=== PATIENT | female | born 1940 | race Caucasian/White ===

== ENCOUNTER → 2018-01-20 | Outpatient (CLI) | payer MEDICARE, BC ==
[~2018-01-20] MED LIST: ALPR.5 PO; AMLO5 PO; ATOR40TA PO; Aspir 8181 MG; CARV6.25 PO; CHOL10002; Calcium Citrat250 MG; Coq-10100 MG PO; FURO80; HYDR1TAB94; K-TAB ER20 MEQ; LISI5 PO; MAGOXI400; METO50ER; OMEP20ER; PRAV20; ROPI2; TORSE20 PO; Tessalon200 MG; WARF2; WARF4 PO
[2018-01-20 15:55] LABS: Protein, Urine Random 10.1 mg/dL (0.0-11.9)
== END ==
LOC: LAB 14:47 → LAB SHORT 14:47
PROVIDERS: Internal Medicine
DX: N18.4 Chronic kidney disease, stage 4 (severe) (principal)
CPT/HCPCS: 82570; 84156

== ENCOUNTER 2018-02-01 12:51 | Day surgery (SDC) | payer MEDICARE, BC ==
[~2018-02-01] VITALS: Ht 157.5 cm; Wt 94.1 kg
[2018-02-01] MEDS ORDERED: FISH OIL 1,0001 EAC2 (13:35)
[2018-02-01] MEDS ORDERED: SPIR25 (13:36)
[2018-02-01] MEDS ORDERED: GABA100 (13:36)
== END 2018-02-01 15:01 | disposition home or self-care (01) ==
LOC: ORSCSDS 12:51
PROVIDERS: Internal Medicine Gastroenterology
PROC: 0D758ZZ Dilation of Esophagus, Via Natural or Artificial Opening Endoscopic (ICD-10-PCS; principal; 2018-02-01 14:30)
DX: R13.10 Dysphagia, unspecified (principal); R19.7 Diarrhea, unspecified; K44.9 Diaphragmatic hernia without obstruction or gangrene; I10 Essential (primary) hypertension; I50.9 Heart failure, unspecified; K21.9 Gastro-esophageal reflux disease without esophagitis; D50.9 Iron deficiency anemia, unspecified; E78.5 Hyperlipidemia, unspecified; I48.91 Unspecified atrial fibrillation; G47.33 Obstructive sleep apnea (adult) (pediatric); E66.9 Obesity, unspecified; Z87.891 Personal history of nicotine dependence; Z68.37 Body mass index [BMI] 37.0-37.9, adult; Z79.82 Long term (current) use of aspirin; Z79.01 Long term (current) use of anticoagulants; Z79.899 Other long term (current) drug therapy
CPT/HCPCS: J2250; J7120

== ENCOUNTER 2018-10-14 10:33 | Emergency (ER) | payer MEDICARE, BC ==
[~2018-10-14] VITALS: Ht 157.5 cm; Wt 89.4 kg
[~2018-10-14 10:33] MED LIST changes: +FISH OIL 1,0001 EAC2; +GABA100; +SPIR25
[2018-10-14] MEDS ORDERED: WARF2 PO (10:41)
[2018-10-14] MEDS ORDERED: Norco 5-325 Ta1 EACH PO (11:06)
== END 2018-10-14 13:03 | disposition home or self-care (01) ==
LOC: ER 10:33
DX: M70.61 Trochanteric bursitis, right hip (principal); Z88.0 Allergy status to penicillin; Z79.01 Long term (current) use of anticoagulants; Z79.899 Other long term (current) drug therapy; Z79.82 Long term (current) use of aspirin; I10 Essential (primary) hypertension; E78.5 Hyperlipidemia, unspecified; K21.9 Gastro-esophageal reflux disease without esophagitis; Z87.891 Personal history of nicotine dependence
CPT/HCPCS: 96372; 99283-25; J3010

== ENCOUNTER → 2022-07-29 | Outpatient (CLI) | payer OTHER ==
[~2022-07-29] MED LIST changes: +Norco 5-325 Ta1 EACH PO; +WARF2 PO
[2022-07-29 12:33] LABS: International Normalized Ratio 1.92; Prothrombin Time Results 19.3 Sec (9.7-11.5)
[2022-07-29 15:48] LABS: Albumin, Blood 3.3 g/dL (3.4-5.0); Anion Gap 3 mmol/L (6-16); Blood Urea Nitrogen 28 mg/dL (8-24); Bun/Creatinine Ratio 17.1 (12.0-20.0); CO2, Blood 30 mmol/L (21-32); Calcium, Blood 9.6 mg/dL (8.5-10.1); Chloride, Blood 100 mmol/L (98-108); Creatinine, Blood 1.64 mg/dL (0.40-1.00); Glomerular Filtration Rate 31 (60-); Glucose, Blood 97 mg/dL (70-99); Phosphorus, Blood 3.6 mg/dL (2.5-4.9); Potassium, Blood 4.3 mmol/L (3.5-5.5); Sodium, Blood 133 mmol/L (136-145)
== END | disposition home or self-care (01) ==
LOC: LAB 11:33 → LAB SHORT 11:33
PROVIDERS: Family Medicine; Internal Medicine Nephrology
DX: N18.32 Chronic kidney disease, stage 3b (principal); I48.91 Unspecified atrial fibrillation
CPT/HCPCS: 36415; 80069; 85610

== ENCOUNTER 2024-04-14 16:53 | Inpatient (IN) | payer OTHER ==
[~2024-04-14] VITALS: Ht 157.5 cm; Wt 78.0 kg
[~2024-04-14 16:53] MED LIST changes: -GABA300 PO; -MAGOXI400 PO; -POTA10T PO; -ROPINIROLE HCL4 M2 PO; -SOAANZ20 M3 PO
[2024-04-14 18:14] LABS: BASOPHILS ABSOLUTE AUTO 0.07 K/mm3 (0.00-0.23); BASOPHILS PERCENT AUTO 1 % (0-2); EOSINOPHILS ABSOLUTE AUTO 0.03 K/mm3 (0.00-0.68); EOSINOPHILS PERCENT AUTO 0 % (0-6); Hematocrit 30.3 % (33.0-51.0); Hemoglobin 9.6 g/dL (11.5-16.0); IMMATURE GRAN ABSOLUTE AUTO 0.07 K/mm3 (0.00-0.10); IMMATURE GRAN PERCENT AUTO 1 % (0-1); LYMPHOCYTES ABSOLUTE AUTO 1.23 K/mm3 (0.84-5.20); LYMPHOCYTES PERCENT AUTO 9 % (21-46); MONOCYTES ABSOLUTE AUTO 1.48 K/mm3 (0.16-1.47); MONOCYTES PERCENT AUTO 11 % (4-13); Mean Corpuscular HGB 28.3 pg (26.0-34.0); Mean Corpuscular HGB Conc 31.7 g/dL (31.5-36.5); Mean Corpuscular Volume 89 fL (80-100); Mean Platelet Volume 9.2 fL (9.1-12.4); NEUTROPHILS ABSOLUTE AUTO 11.25 K/mm3 (1.96-9.15); NEUTROPHILS PERCENT AUTO 80 % (41-73); Platelet Count 500 K/mm3 (150-400); RDW Standard Deviation 48.8 fL (35.1-46.3); Red Blood Cell Count 3.39 M/mm3 (3.80-5.20); White Blood Cell Count 14.13 K/mm3 (4.00-11.30)
[2024-04-14 18:37] LABS: Prothrombin Time Results 44.7 Sec (9.7-11.5)
[2024-04-14 18:38] LABS: Albumin, Blood 2.4 g/dL (3.4-5.0); Albumin/Globulin Ratio 0.5 (0.8-1.8); Bilirubin, Total 0.2 mg/dL (0.1-1.0); Bun/Creatinine Ratio 18.6 (12.0-20.0); Calcium, Blood 9.8 mg/dL (8.5-10.1); Creatinine, Blood 1.18 mg/dL (0.40-1.00); Potassium, Blood 4.1 mmol/L (3.5-5.5); Total Protein, Blood 7.4 g/dL (6.4-8.2)
[2024-04-14 18:45] LABS: International Normalized Ratio 4.68
[2024-04-14] MEDS ORDERED: Cefepime HCl 2,000 MG in NS 100 ML IV ONE (19:45)
[2024-04-14] MEDS ORDERED: MetroNIDAZOLE 500MG/NS 100 ml 100 ML IV ONE (19:45)
[2024-04-14] MEDS ORDERED: rOPINIRole HCl 2 MG Tab PO ONE (20:10)
[2024-04-14] MEDS ORDERED: NS 1,000 ML IV ONE (22:55)
[2024-04-14] MEDS ORDERED: Ondansetron HCl 2 MG / ML 2ML Vial IV PRN (22:55)
[2024-04-14] MEDS ORDERED: Peg/Electrolytes 4,000 ML BTL PO ONE (22:55)
[2024-04-14] MEDS ORDERED: FLU VACC TS2024-25(6MOS UP)/PF 45 MCG/0.5 ML SYRINGE IM ONE (23:00)
[2024-04-14] MEDS ORDERED: FentaNYL Citrate 50 MCG/ML 2 ML Injection IV PRN (23:00)
[2024-04-14] MEDS ORDERED: Phytonadione 5 MG in NS 50 ML IV ONE (23:00)
[2024-04-14] MEDS ORDERED: GABA300 PO (23:49)
[2024-04-14] MEDS ORDERED: ROPINIROLE HCL4 M2 PO (23:50)
[2024-04-15 00:31] VITALS: BP 150/71
[2024-04-15] MEDS ORDERED: MetroNIDAZOLE 500MG/NS 100 ml 100 ML IV SCH (02:00)
[2024-04-15] MEDS ORDERED: rOPINIRole HCl 0.25 MG Tab PO ONE (02:40)
[2024-04-15 04:06] VITALS: BP 140/69
[2024-04-15 06:18] LABS: BASOPHILS ABSOLUTE AUTO 0.04 K/mm3 (0.00-0.23); BASOPHILS PERCENT AUTO 0 % (0-2); EOSINOPHILS ABSOLUTE AUTO 0.02 K/mm3 (0.00-0.68); EOSINOPHILS PERCENT AUTO 0 % (0-6); Hematocrit 27.8 % (33.0-51.0); Hemoglobin 9.1 g/dL (11.5-16.0); IMMATURE GRAN ABSOLUTE AUTO 0.06 K/mm3 (0.00-0.10); IMMATURE GRAN PERCENT AUTO 0 % (0-1); LYMPHOCYTES ABSOLUTE AUTO 0.78 K/mm3 (0.84-5.20); LYMPHOCYTES PERCENT AUTO 6 % (21-46); MONOCYTES ABSOLUTE AUTO 1.29 K/mm3 (0.16-1.47); MONOCYTES PERCENT AUTO 9 % (4-13); Mean Corpuscular HGB 28.3 pg (26.0-34.0); Mean Corpuscular HGB Conc 32.7 g/dL (31.5-36.5); Mean Corpuscular Volume 86 fL (80-100); NEUTROPHILS ABSOLUTE AUTO 11.58 K/mm3 (1.96-9.15); NEUTROPHILS PERCENT AUTO 84 % (41-73); Platelet Count 572 K/mm3 (150-400); RDW Coefficient Variation 14.8 % (11.7-14.2); Red Blood Cell Count 3.22 M/mm3 (3.80-5.20); White Blood Cell Count 13.77 K/mm3 (4.00-11.30)
[2024-04-15 06:47] LABS: International Normalized Ratio 1.89; Prothrombin Time Results 19.3 Sec (9.7-11.5)
[2024-04-15 06:55] LABS: Albumin, Blood 2.3 g/dL (3.4-5.0); Albumin/Globulin Ratio 0.5 (0.8-1.8); Bilirubin, Total 0.4 mg/dL (0.1-1.0); Bun/Creatinine Ratio 14.8 (12.0-20.0); Calcium, Blood 9.4 mg/dL (8.5-10.1); Creatinine, Blood 1.08 mg/dL (0.40-1.00); Globulin, Blood 4.4 g/dL (2.2-4.0); Potassium, Blood 3.8 mmol/L (3.5-5.5); Total Protein, Blood 6.7 g/dL (6.4-8.2)
[2024-04-15] MEDS ORDERED: Cefepime HCl 1,000 MG in NS 100 ML IV SCH (08:00)
[2024-04-15] MEDS ORDERED: Peg/Electrolytes 4,000 ML BTL PO SCH (08:20)
[2024-04-15 08:33] VITALS: BP 144/76
[2024-04-15] MEDS ORDERED: rOPINIRole HCl 2 MG Tab PO SCH (09:00)
[2024-04-15] MEDS ORDERED: Spironolactone 25 MG Tab PO SCH (09:00)
[2024-04-15] MEDS ORDERED: Lactobacil 2-S.Thermo-Bifido 1 1 Cap PO SCH (09:00)
[2024-04-15] MEDS ORDERED: Aspirin 81 MG TabEC PO SCH (09:00)
[2024-04-15] MEDS ORDERED: Torsemide 20 MG TAB PO SCH (09:00)
[2024-04-15] MEDS ORDERED: Omeprazole 20 MG CapCR PO SCH (09:00)
[2024-04-15] MEDS ORDERED: Carvedilol 6.25 MG Tab PO SCH (09:00)
[2024-04-15] MEDS ORDERED: NS 250 ML IV PRN (09:00)
[2024-04-15] MEDS ORDERED: POTA10T PO (12:49)
[2024-04-15] MEDS ORDERED: MAGOXI400 PO (14:02)
[2024-04-15] MEDS ORDERED: SOAANZ20 M3 PO (14:04)
[2024-04-15 14:42] VITALS: BP 133/72
--- NOTE | 2024-04-15 17:23 | NUR ---
SHIFT SUMMARY: PATIENT COMPLETED 2000ML+ OF HER BOWEL PREP; HER STOOLS ARE YELLOW TRANSULCENT WITH FLECKS. PATIENT CONTINUES TO SLOWLY SIP ON BOWEL PREP WHILE SHE AWAITS TO HEAR WHEN SHE WILL BE HAVING HER COLONOSCOPY; CALL MADE TO DR. CASAREZ AND HE ADVISED THAT DR. WINSLOW IS ROUNDING ON THE PATIENT NOW AND STATES THAT HE WILL PLAN ON DOING A COLONOSCOPY IN THE MORNING; HAVE THE PATIENT FINISH THE PREP AND BE ON WATER ONLY AND NPO AT 0600 04/16/24. PATIENT IN BED, AT BEDSIDE, CALL LIGHT WITHIN REACH, NO SIGNS OR SYMPTOMS OF DISTRESS, PLAN OF CARE ONGOING.
[2024-04-15 20:14] VITALS: BP 132/66
[2024-04-15] MEDS ORDERED: Gabapentin 300 MG Cap PO SCH (21:00)
[2024-04-16] VITALS (25 sets, daily range): BP systolic 96–154; BP diastolic 52–75
--- NOTE | 2024-04-16 04:10 | NUR ---
SHIFT SUMMARY: PT IS A 83 YO DNR WHO WAS ADMITTED FOR MASS ON CECUM AND SECONDARY SEPSIS. PT HAS A COLONOSCOPY SCHEDULED TODAY TENETIVELY FOR 1100 BUT GOES NPO AT 0800. PT HAS HAD MULTIPLE LIQUID STOOLS IN BSC THAT IS YELLOW W/GOLF FLEX. PT HAS HAD SOME INCONT OF STOOLS THIS SHIFT. PT USES CALL LIGHT APPROPRIATELY. PT IS ON TELE WITH SR @82 AND A BBB. PT HAS BEEN DRINKING GOLYTELY BOWEL PREP THIS SHIFT. PT'S WAS HERE AT BEG OF SHIFT AND I CALLED THE GRANDDAUGHTER "JUDITH" TO TELL HER ABOUT THE TENATIVE 1100 COLONOSCOPY PLANS PER PT WANTING HER GRANDDAUGHTER TO BE AWARE. PT HAS BEEN IN GOOD SPIRITS AND NO PAIN THIS SHIFT. I NOTICED DURING MY ASSESSMENT THAT THE PT'S LEFT LEG IS MORE SWOLLEN THEN HER RIGHT AND THE PT STATES IT IS NORMAL FOR HER AND HAS BEEN THAT WAY SINCE HER HEART SURGERY (2013). PT HAS AN ALLERGY TO PCN AND IS RESTING. CALL LIGHT IN REACH.
[2024-04-16 05:37] LABS: BASOPHILS ABSOLUTE AUTO 0.06 K/mm3 (0.00-0.23); BASOPHILS PERCENT AUTO 1 % (0-2); EOSINOPHILS ABSOLUTE AUTO 0.01 K/mm3 (0.00-0.68); EOSINOPHILS PERCENT AUTO 0 % (0-6); Hematocrit 27.5 % (33.0-51.0); Hemoglobin 8.7 g/dL (11.5-16.0); IMMATURE GRAN ABSOLUTE AUTO 0.04 K/mm3 (0.00-0.10); IMMATURE GRAN PERCENT AUTO 0 % (0-1); LYMPHOCYTES ABSOLUTE AUTO 1.19 K/mm3 (0.84-5.20); LYMPHOCYTES PERCENT AUTO 9 % (21-46); MONOCYTES ABSOLUTE AUTO 1.51 K/mm3 (0.16-1.47); MONOCYTES PERCENT AUTO 11 % (4-13); Mean Corpuscular HGB 27.7 pg (26.0-34.0); Mean Corpuscular HGB Conc 31.6 g/dL (31.5-36.5); Mean Corpuscular Volume 88 fL (80-100); Mean Platelet Volume 9.2 fL (9.1-12.4); NEUTROPHILS PERCENT AUTO 79 % (41-73); Platelet Count 554 K/mm3 (150-400); RDW Coefficient Variation 14.8 % (11.7-14.2); RDW Standard Deviation 47.9 fL (35.1-46.3); Red Blood Cell Count 3.14 M/mm3 (3.80-5.20); White Blood Cell Count 13.31 K/mm3 (4.00-11.30)
[2024-04-16 05:51] LABS: International Normalized Ratio 1.29; Prothrombin Time Results 13.5 Sec (9.7-11.5)
[2024-04-16 06:23] LABS: Calcium, Blood 9.1 mg/dL (8.5-10.1); Creatinine, Blood 1.36 mg/dL (0.40-1.00); Potassium, Blood 3.2 mmol/L (3.5-5.5)
[2024-04-16] MEDS ORDERED: Potassium Chloride 20 MEQ TabCR PO ONE (09:30)
[2024-04-16] MEDS ORDERED: Lactated Ringer's 1,000 ML IV SCH (10:25)
--- NOTE | 2024-04-16 11:09 | NUR ---
PATIENT TAKEN DOWN TO FOR HER COLONOSCOPY; PATIENT'S RINGS WERE REMOVED, PLACED IN A CUP AND LABELED, PLACED IN LOCK BOX IN ROOM, FAMILY CALLED AND NOTIFIED THEY WERE COMFORTABLE LEAVING THEM IN THE LOCK BOX.
[2024-04-16] MEDS ORDERED: propofoL 40 ML IV ONE (11:14)
--- NOTE | 2024-04-16 11:41 | NUR ---
04/16/24 1141 Preeti Brown CONFIRMED AND REVIEWED H&P, MEDCICATIONS, ALLERGIES, MEDICAL HISTORY, RESPIRATORY HISTORY, VITAL SIGNS, 3-LEAD EKG, CONSENTS, AND PHYSICIAN ORDERS. PATIENT CONFIRMS NPO STATUS AND AGREES WITH SCHEDULED PROCEDURE. MONITOR INTACT WITH CONTINUOUS PULSE OXIMETRY, CAPNOGRAPHY, 3-LEAD EKG, INTERMITTENT BP. SUPPLEMENTAL O2 TO BE TITRATED THROUGHOUT PROCEDURE TO MAINTAIN O2 SATURATION ABOVE 90%. PATIENT DETERMINED TO BE ASA APPROPRIATE FOR PROPOFOL SEDATION PRIOR TO START OF PROCEDURE BY DR. WINSLOW.
[2024-04-16] MEDS ORDERED: propofoL 20 ML IV ONE (12:05)
--- NOTE | 2024-04-16 12:54 | NUR ---
PATIENT RETURNED FROM HER PROCEDURE; PT ALERT AND ABLE TO TRANFER TO THE BED. VITAL SIGNS STABLE. RINGS RETURNED TO PATIENT'S . DR. KEBEDE CAME BY AND AWAITING FOR DR. CASAREZ. NO SIGNS OR SYMPTOMS OF DISTRESS, PLAN OF CARE ONGOING.
[2024-04-16] MEDS ORDERED: Acetaminophen 325 MG TABLET PO PRN (13:25)
[2024-04-16] MEDS ORDERED: MetroNIDAZOLE 500 MG Tab PO ONE ×3 (15:00→23:00)
[2024-04-16] MEDS ORDERED: NEOMYCIN SULFATE 500 MG PO ONE ×3 (15:00→23:00)
--- NOTE | 2024-04-16 15:03 | NUR ---
REVIEWED ORDERED PLACED BY DR. CASAREZ AND NURSE NOTIFY ALONG WITH IT. CALLED TO CLARIFY THE EXISITING IV FLAGYL AND CEFEPIME ORDER. PER. DR. CASAREZ TO PROCEED WITH ORDERS WRITEN. ASKED HIM WHEN HE ANTICIPATED COMING BY TO SEE THE PATIENT; HE WASN'T SURE. PLAN OF CARE ONGOING.
--- NOTE | 2024-04-16 17:28 | NUR ---
SHIFT SUMMARY: PATIENT HAD HER COLONOSCOPY THIS MORNING AT 1100; PATIENT RETURNED AT 1.5 HOURS AND WAS ALERT UPON ARRIVAL. ONLY COMPLAINT WAS NECK PAIN, WHICH TYLENOL WAS GIVEN AND RESOLVED. PATIENT HAS BEEN ON CLEAR LIQUIDS POST PROCEDURE; TOLERATING WELL AND STARTED ON [place]ILTON PREP ORDERED BY DR. CASAREZ. DR. CASAREZ CAME BY AND SPOKE WITH THE PATIENT AND FAMILY AND DISCUSSED PLAN OF PROCEDURE TOMORROW 04/17/24. PATIENT WILL BE NPO AT MIDNIGHT. SEE NURSE NOTIFY ORDER FROM DR. CASAREZ. PATIENT IN BED, AT BEDSIDE, CALL LIGHT WITHIN REACH, NO SIGNS OR SYMPTOMS OF DISTRESS, PLAN OF CARE ONGOING.
[2024-04-17] VITALS (28 sets, daily range): BP systolic 116–193; BP diastolic 56–121
--- NOTE | 2024-04-17 04:29 | NUR ---
SHIFT SUMMARY PATIENT IS NPO FOR PROCEDURE. AXOX 4 AND NO ACUTE CHANGES. SBA TO BR. MEDS GIVEN PER DR CASAREZ ORDER AND ENSURE DRINK. DENIES CHEST PAIN, SOB, AND N/V. PIV INTACT. IV ABX INFUSED. VSS/AFEBRILE. TELE MONITOR NSR 86. PATIENT SLEPT ON/OFF. CALL LIGHT IN REACH. BED IN LOWEST POSITION. WILL CONTINUE TO MONITOR UNTIL DAY SHIFT NURSE ASSUMES CARE.
[2024-04-17 05:48] LABS: BASOPHILS ABSOLUTE AUTO 0.07 K/mm3 (0.00-0.23); BASOPHILS PERCENT AUTO 1 % (0-2); EOSINOPHILS PERCENT AUTO 0 % (0-6); Hematocrit 25.7 % (33.0-51.0); Hemoglobin 8.3 g/dL (11.5-16.0); IMMATURE GRAN ABSOLUTE AUTO 0.07 K/mm3 (0.00-0.10); IMMATURE GRAN PERCENT AUTO 1 % (0-1); LYMPHOCYTES ABSOLUTE AUTO 1.12 K/mm3 (0.84-5.20); LYMPHOCYTES PERCENT AUTO 8 % (21-46); MONOCYTES PERCENT AUTO 12 % (4-13); Mean Corpuscular HGB 28.2 pg (26.0-34.0); Mean Corpuscular HGB Conc 32.3 g/dL (31.5-36.5); Mean Corpuscular Volume 87 fL (80-100); Mean Platelet Volume 9.5 fL (9.1-12.4); NEUTROPHILS ABSOLUTE AUTO 10.91 K/mm3 (1.96-9.15); NEUTROPHILS PERCENT AUTO 79 % (41-73); Platelet Count 513 K/mm3 (150-400); RDW Coefficient Variation 14.7 % (11.7-14.2); RDW Standard Deviation 47.6 fL (35.1-46.3); Red Blood Cell Count 2.94 M/mm3 (3.80-5.20); White Blood Cell Count 13.87 K/mm3 (4.00-11.30)
[2024-04-17 07:08] LABS: Percent Saturation 9.4 % (15.0-50.0)
[2024-04-17] MEDS ORDERED: Ropivacaine 0.5% HCL/PF 5 MG/ML 30ML Vial ONE (07:12)
[2024-04-17 07:16] LABS: Bun/Creatinine Ratio 9.7 (12.0-20.0); Calcium, Blood 8.6 mg/dL (8.5-10.1); Creatinine, Blood 1.45 mg/dL (0.40-1.00); Potassium, Blood 3.2 mmol/L (3.5-5.5)
[2024-04-17] MEDS ORDERED: FentaNYL Citrate 50 MCG/ML 2 ML Injection ONE ×2 (07:20→13:50)
[2024-04-17] MEDS ORDERED: propofoL 20 ML IV ONE (07:20)
[2024-04-17] MEDS ORDERED: Midazolam HCl 1MG / ML 2ML Vial ONE (07:22)
[2024-04-17] MEDS ORDERED: Dexamethasone Sod Phos 10 MG/ML 1ML VIAL ONE ×2 (07:25→07:26)
[2024-04-17] MEDS ORDERED: EpiNEPhrine 1 MG/1 ML 1ML Vial ONE (07:25)
[2024-04-17] MEDS ORDERED: Ondansetron HCl 2 MG / ML 2ML Vial ONE (07:25)
[2024-04-17] MEDS ORDERED: Rocuronium Bromide 10 MG/ML 5ML Injection IV ONE ×3 (07:25→10:31)
[2024-04-17 07:54] LABS: International Normalized Ratio 1.34
[2024-04-17] MEDS ORDERED: Oxymetazoline 0.05% Nasal Relief Spray 15mL BTL ONE (08:40)
[2024-04-17] MEDS ORDERED: Potassium Chloride 20 MEQ TabCR PO ONE (08:50)
[2024-04-17] MEDS ORDERED: Torsemide 20 MG TAB PO SCH (09:00)
[2024-04-17] MEDS ORDERED: Bupivacaine 0.5% HCl 5 MG/ML 30MLVIAL ONE (09:20)
--- NOTE | 2024-04-17 09:45 | NUR ---
SHIFT SUMMARY PT A&OX4. PT ADMITTED DUE TO SEPSIS. PT WAS NPO PRIOR TO SURGERY. CHECKED VITALS, PT BLOOD PRESSURE WAS 128/64 AND PULSE WAS 85. PT SATS ARE 96% ON ROOM AIR. GAVE COREG. PT HAS FAMILY AT BEDSIDE. PT TRANSFERED SELF TO [facility] AT 0730 , GAVE TRANSPORT FLAGYL AND MAXIPIME TO ADMINISTER PRIOR TO PROCEDURE.
[2024-04-17] MEDS ORDERED: Sugammadex Sodium 200 MG/2ML SDV (100 MG/ML) ONE (10:15)
[2024-04-17] MEDS ORDERED: HydrALAZINE HCl 20 MG / ML 1ML Vial ONE (13:55)
[2024-04-17] MEDS ORDERED: HYDROmorphone HCl/Pf 1MG SYR ONE (14:16)
[2024-04-17] MEDS ORDERED: Labetalol HCL 5 MG/ML 4ML Injection (Single Dose) ONE (14:36)
--- NOTE | 2024-04-17 15:20 | NUR ---
TELE RECONNECTED AND VERIFIED WITH WAREHOUSE ADMINISTRATIVE ASSISTANT
[2024-04-17] MEDS ORDERED: HydrALAZINE HCl 20 MG / ML 1ML Vial IV PRN (15:45)
--- NOTE | 2024-04-17 15:55 | NUR ---
PT ARRIVED TO UNIT FROM PACU TELE REPORTED THAT PT HAD ST CHANGES ALARMING ON TELEMETRY. NOTIFIED DR PORTILLO AND ORDERS OBTAINED FOR EKG WHICH WAS COMPLETED AND RESULTS REPORTED TO . PT SLEEPING HEAVILY, RESPONDS TO PAINFUL STIMULI AND THEN RETURNS TO SLEEP. VSS. 02 SATS 94% ON 4L NC. PT'S SPOUSE REPORTS PT HAS HX OF SLEEP APNEA BUT DOES NOT WEAR CPAP. LAP INCISIONS TO ABD W/TISS ADHESIVE CDI. CONTRERAS CATH DRAINING BOSE YELLOW URINE. CALL LIGHT IN REACH. SPOUSE BEDSIDE.
--- NOTE | 2024-04-17 17:10 | NUR ---
SUMMARY VSS. PT VERY SLEEPY. RESPONDS TO PAINFUL STIMULI. ADMINISTERED ABX PER ORDERS. LAP INCISIONS TO ABD CDI. ABDOMEN SOFT. TELE IN PLACE. CALL LIGHT IN REACH AND BED ALARM ON FOR SAFETY.
--- NOTE | 2024-04-17 17:36 | NUR ---
PT SLIGHTLY MORE ALERT. OPENED EYES WHEN SPOKE TO PT. WHEN ASKED IF NEEDED ANYTHING, PT SHOOK HEAD NO. VSS. CALL LIGHT IN REACH, BED ALARM ON.
[2024-04-17] MEDS ORDERED: NS 1,000 ML IV SCH (21:30)
--- NOTE | 2024-04-17 21:30 | NUR ---
PHONE CALL TO DR CARDONA REGARDING PT STATUS AND CURRENT MED ORDERS.REVIEWED VS AND PRIOR MEDS FOR HTN INCLUDING CURRENT ORDERS FOR MEDS.PT SLEEPY,ORIENTED AND CONVERSES APPROPRIATELY W/A.ADVISED OF CREAT TRENDS AND HX CKD.MAP 78-80.PT WITH APPROX 100 ML IN BAG MED [place]HA IN COLOR.PT WITH CARDIAC HX.NO IV FLUIDS ORDERED.DR CARDONA PUTTING ORDERS IN.RECOMMENDED HOLDING COREG TONIGHT AND MONITOR VS PER POLICY.
[2024-04-17] MEDS ORDERED: Potassium Chl 20MEQ/Water100ML 100 ML IV STA (21:35)
[2024-04-18 03:59] VITALS: BP 123/51
[2024-04-18 06:20] LABS: BASOPHILS ABSOLUTE AUTO 0.02 K/mm3 (0.00-0.23); BASOPHILS PERCENT AUTO 0 % (0-2); EOSINOPHILS PERCENT AUTO 0 % (0-6); Hematocrit 24.1 % (33.0-51.0); Hemoglobin 7.6 g/dL (11.5-16.0); IMMATURE GRAN ABSOLUTE AUTO 0.15 K/mm3 (0.00-0.10); IMMATURE GRAN PERCENT AUTO 1 % (0-1); LYMPHOCYTES ABSOLUTE AUTO 0.44 K/mm3 (0.84-5.20); LYMPHOCYTES PERCENT AUTO 2 % (21-46); MONOCYTES ABSOLUTE AUTO 1.72 K/mm3 (0.16-1.47); MONOCYTES PERCENT AUTO 9 % (4-13); Mean Corpuscular HGB Conc 31.5 g/dL (31.5-36.5); Mean Corpuscular Volume 89 fL (80-100); Mean Platelet Volume 9.4 fL (9.1-12.4); NEUTROPHILS ABSOLUTE AUTO 17.83 K/mm3 (1.96-9.15); NEUTROPHILS PERCENT AUTO 89 % (41-73); Platelet Count 475 K/mm3 (150-400); Red Blood Cell Count 2.71 M/mm3 (3.80-5.20); White Blood Cell Count 20.16 K/mm3 (4.00-11.30)
[2024-04-18 06:46] LABS: Bun/Creatinine Ratio 10.4 (12.0-20.0); Calcium, Blood 8.2 mg/dL (8.5-10.1); Creatinine, Blood 1.44 mg/dL (0.40-1.00); Potassium, Blood 3.9 mmol/L (3.5-5.5)
[2024-04-18 07:03] VITALS: BP 129/54
--- NOTE | 2024-04-18 07:51 | NUR ---
SUMMARY PT MED X1 IV FOR PAIN TONIGHT.PT REPORTED NOT WANTING TO TAKE MORE THIS AM YET HER WILL BE VISITING,AND DOESNT WANT TO SLEEP WHEN HE IS VISITNG AND REPORTS MED MADE HER SLEEP. PT VERB SHE WILL CALL NURSE IF SHE CHANGES HER MIND.
[2024-04-18 14:43] VITALS: BP 93/75
--- NOTE | 2024-04-18 17:34 | NUR ---
SHIFT SUMMARY POD 1 BOWEL RESECTION. PT UP TO CHAIR DURING SHIFT. TOLERATING DIET WELL. NAUSEA X1, MANAGED PER EMAR. MINIMAL PAIN DURING SHIFT. BM X1 DURING SHIFT. PASSING FLATUS. CONTRERAS REMOVED AND PT VOIDING USING BSC. REMAINS ON 2L NASAL CANULA, PLAN TO WEAN TOELRATED. LAP SITES REMAIN CDI. WILL CONTINUE TO ENCOURAGE MOBILITY.
[2024-04-18 19:09] VITALS: BP 121/61
--- NOTE | 2024-04-19 04:34 | NUR ---
SHIFT SUMMARY POD 2 BOWEL RESECTION c ALEXANDRA. NO ACUTE CHANGES OVERNIGHT. VSS, O2 SAT >90% USING 2L VIA NC PRN, TELE - SR @ 91 c BBB, CONT BIOX IN USE. TOLERATING ORALS. LAP SITES c WOUND GLUE/INTERSTATE PLANNER C/D/I. VOIDING. AMBULATES STAND/PIVOT TO BSC c 2 PERSON ASSIST. PT REPORTS NECK PAIN TOLERABLE, MEDICATED PER EMAR. CALL LIGHT IN REACH, BED IN LOWEST POSITION, WILL REPORT TO DAY RN.
[2024-04-19 05:06] VITALS: BP 119/54
[2024-04-19 07:13] VITALS: BP 111/48
[2024-04-19 14:04] VITALS: BP 114/55
--- NOTE | 2024-04-19 16:14 | NUR ---
SHIFT SUMMARY POD 2, PT TOLERATING DIET WELL. DENIES NAUSEA AT THIS TIME. PAIN CONTROLLED IN ABDOMEN, ONLY HAVING PAIN IN NECK. PT UP AND AMBULATING TO RESTROOM DURING SHIFT. PASSING FLATUS AND SMALL STOOL. INCISIONS REMAIN CDI. PT ON ROOM AIR AT THIS TIME WHILE AWAKE. NO SOB OR DYSPNEA WITH EXERTION.
[2024-04-19 18:51] VITALS: BP 129/66
--- NOTE | 2024-04-19 19:18 | NUR ---
tele called and notified of some st elevation on tele. spoke with provider, barron. orders recieved for 12 lead ekg and to notifiy if any st elevation seen. while checking on patient she denies any chest pain or shortness of breath. she was resting in bed with no complaints. ekg done and patient continues to report not chest pain or sob.
[2024-04-19 19:33] VITALS: BP 123/58
[2024-04-19 23:10] VITALS: BP 128/67
[2024-04-20 05:15] VITALS: BP 110/62
--- NOTE | 2024-04-20 06:00 | NUR ---
TELE CALL FROM [employer] ARCHITECT SHANE AT 0551, I WAS NOTIFIED THAT PT WAS HAVING ST ELEVATION ON TELE. PT HAD A SIMILAR EVENT AT SHIFT CHANGE YESTERDAY. BOTH TIMES SHE HAS BEEN ASYMPTOMATIC AND DENIES CHEST PAIN. VITALS ARE STABLE. EKG PERFORMED YESTERDAY WAS UNREMARKABLE. DR. JUAREZ CALLED AND NOTIFIED AT [address] ELEVATION ON TELE THIS AM. NO ORDERS, PLAN OF CARE UNCHANGED.
--- NOTE | 2024-04-20 06:31 | NUR ---
SHIFT SUMMARY PT HAS RESTED T/O THE NIGHT. DENIES PAIN. NO N/V, TOLERATING PO INTAKE. ABD SOFT, BOWEL TONES HYPERAVCTIVE, PT HAVING BM'S. CALL FROM BRAND INSPECTOR THIS AM CLOSE TO [address] ELEVATION ON TELE. PT HAD SIMILAR CHANGES ON TELE AT SHIFT CHANGE YESTERDAY. THE EKG THAT WAS PERFORMED AT THE TIME WAS UNREMARKABLE. PT DENIES CHEST PAIN, AND VITALS STABLE. DR. JUAREZ CALL AND NOTIFIED, NO NEW ORDERS GIVEN AND PLAN OF CARE UNCHANGED. BED IN LOWEST POSITION, CALL LIGHT WITHIN REACH.
[2024-04-20 07:23] VITALS: BP 125/65
[2024-04-20 11:08] LABS: BASOPHILS ABSOLUTE AUTO 0.06 K/mm3 (0.00-0.23); BASOPHILS PERCENT AUTO 0 % (0-2); EOSINOPHILS PERCENT AUTO 0 % (0-6); Hematocrit 29.3 % (33.0-51.0); IMMATURE GRAN ABSOLUTE AUTO 0.05 K/mm3 (0.00-0.10); IMMATURE GRAN PERCENT AUTO 0 % (0-1); LYMPHOCYTES ABSOLUTE AUTO 0.68 K/mm3 (0.84-5.20); LYMPHOCYTES PERCENT AUTO 4 % (21-46); MONOCYTES ABSOLUTE AUTO 1.51 K/mm3 (0.16-1.47); MONOCYTES PERCENT AUTO 10 % (4-13); Mean Corpuscular HGB 28.3 pg (26.0-34.0); Mean Corpuscular HGB Conc 30.7 g/dL (31.5-36.5); Mean Corpuscular Volume 92 fL (80-100); Mean Platelet Volume 9.8 fL (9.1-12.4); NEUTROPHILS ABSOLUTE AUTO 13.12 K/mm3 (1.96-9.15); NEUTROPHILS PERCENT AUTO 85 % (41-73); Platelet Count 500 K/mm3 (150-400); RDW Coefficient Variation 14.9 % (11.7-14.2); RDW Standard Deviation 50.4 fL (35.1-46.3); Red Blood Cell Count 3.18 M/mm3 (3.80-5.20); White Blood Cell Count 15.42 K/mm3 (4.00-11.30)
[2024-04-20 11:33] LABS: Calcium, Blood 8.9 mg/dL (8.5-10.1); Creatinine, Blood 1.46 mg/dL (0.40-1.00); Potassium, Blood 3.4 mmol/L (3.5-5.5)
[2024-04-20 11:45] VITALS: BP 101/59
[2024-04-20] MEDS ORDERED: Potassium Chloride 10 Meq Tablet SA PO ONE (12:00)
[2024-04-20] MEDS ORDERED: NS 250 ML IV ONE (12:00)
[2024-04-20 14:44] VITALS: BP 139/87
[2024-04-20 14:56] LABS: SARS-Cov-2 (COVID-19) PCR, MMC Negative (NEGATIVE)
--- NOTE | 2024-04-20 18:25 | NUR ---
SUMMARY; PT IS POD3 HEMICOLECTOMY. A/O, VSS. PT IS HAVING FREQUENT LOOSE STOOLS, DENIES N/V. SAYS THAT SHE DOESN'T FEEL LIKE EATING , TOOK A FEW BITES OF MEALS. SURGICAL SITES WNL, PT UP TO BATHROOM, 1 ASSIST MANY TIMES TODAY TO VOID OR HAVE BM. PT HAD SOME DIZZINESS TODAY IN THE AFTERNOON RANDOMLY WHILE SITTING IN CHAIR AND UNABLE TO WORK WITH THERAPY. DR. CALZADA IN ROOM AT THE TIME PT DIZZY AND A FLUID BOLUS GIVEN. PT REPORTED FEELING BETTER AFTER LYING IN BED AND GETTING THE NS BOLUS. COVID SWAB NEGATIVE TODAY. PLAN IS REHAB TOMORROW. NO SAFETY CONCERNS. PT USES CALL LIGHT
[2024-04-20 19:12] VITALS: BP 135/68
[2024-04-21 04:02] VITALS: BP 140/61
--- NOTE | 2024-04-21 05:28 | NUR ---
SHIFT SUMMARY PT REPORTED ABD PAIN LATER IN THE SHIFT, RATED IT A 9/10, DESCRIBED IT SHARP. PT MEDICATED PER EMAR WITH EFFECT. BOWEL TONES HYPOACTIVE, NO BOWEL MOVEMENTS. NO N/V. PT HAS BEEN UP AND AMBULATING 1 PA, FWW. SURGICAL SITE WNL, PLAN OF CARE UNCHANGED. POSSIBLE DC SNF TODAY. BED IN LOWEST POSITION, CALL LIGHT WITHIN REACH.
[2024-04-21 07:15] VITALS: BP 141/70
[2024-04-21] MEDS ORDERED: OxyCODONE 5 mg/Acetamin 325 mg TABLET PO PRN (08:45)
[2024-04-21 14:38] VITALS: BP 127/70
--- NOTE | 2024-04-21 16:23 | NUR ---
REPORT CALLED TO IVY AT .
--- NOTE | 2024-04-21 18:25 | NUR ---
DISCHARGE NOTE RECIEVED REPORT FROM CORINNE TAVARES @ [id number]. PT RESTING COMFORTABLY IN ROOM. CORINNE TAVARES CALLED DANYELLE TO GIVE REPORT, SEE NOTE. PT DC'D VIA MEDICAL TRANSPORT/WC IN STABLE CONDITION W/ PERSONAL BELONGINGS.
== END 2024-04-21 18:30 | DRG 329 ==
LOC: ER 16:53 → ERHOLD 23:22 → MEDS 23:22 → SURS 23:22 → MEDS 04-15 00:26 → SURS 04-17 10:40
PROVIDERS: Family Medicine; Internal Medicine; Physician Assistant; Surgery; ADMIT Internal Medicine
PROC: 0DBH8ZX Excision of Cecum, Via Natural or Artificial Opening Endoscopic, Diagnostic (ICD-10-PCS; 2024-04-16)
PROC: 0DXU4ZW Transfer Omentum to Abdominal Region, Percutaneous Endoscopic Approach (ICD-10-PCS; 2024-04-17)
PROC: 8E0W4CZ Robotic Assisted Procedure of Trunk Region, Percutaneous Endoscopic Approach (ICD-10-PCS; 2024-04-17)
PROC: 0DTF4ZZ Resection of Right Large Intestine, Percutaneous Endoscopic Approach (ICD-10-PCS; principal; 2024-04-17 08:00)
DX: C18.0 Malignant neoplasm of cecum (principal); A41.9 Sepsis, unspecified organism; K63.5 Polyp of colon; K57.30 Diverticulosis of large intestine without perforation or abscess without bleeding; K64.8 Other hemorrhoids; K64.4 Residual hemorrhoidal skin tags; Z66 Do not resuscitate; E78.5 Hyperlipidemia, unspecified; K21.9 Gastro-esophageal reflux disease without esophagitis; I12.9 Hypertensive chronic kidney disease with stage 1 through stage 4 chronic kidney disease, or unspecified chronic kidney disease; G25.81 Restless legs syndrome; E87.6 Hypokalemia; N18.30 Chronic kidney disease, stage 3 unspecified; D63.1 Anemia in chronic kidney disease; G62.9 Polyneuropathy, unspecified; Z96.652 Presence of left artificial knee joint; Z90.710 Acquired absence of both cervix and uterus; Z98.890 Other specified postprocedural states; Z88.0 Allergy status to penicillin; Z95.2 Presence of prosthetic heart valve; Z79.01 Long term (current) use of anticoagulants; Z79.82 Long term (current) use of aspirin; Z79.899 Other long term (current) drug therapy
CPT/HCPCS: 36415; 71250; 74177; 80048; 80053; 82378; 82607; 82728; 82746; 83540; 83550; 83690; 83880; 85025; 85610; 86301; 86304; 88305; 88309; 93005; 93010; 94762; 96365-59; 96367; 97110; 97116; 97162; 97530; 99285-25; A9270; J0171; J0360; J0692; J1100; J1171; J2250; J2405; J2704; J2795; J3010; J3430; J3480; J7030; J7050; J7120; Q9967; U0002

== ENCOUNTER → 2024-04-14 | Outpatient (CLI) | payer OTHER ==
[~2024-04-14] MED LIST changes: -Aspir 8181 MG; +Aspir 8181 MG PO; +GABA300 PO; -MAGOXI400; +MAGOXI400 PO; -OMEP20ER; +OMEP20ER PO; +POTA10T PO; +ROPINIROLE HCL4 M2 PO; +SOAANZ20 M3 PO; -SPIR25; +SPIR25 PO
[2024-04-14 11:46] LABS: BASOPHILS ABSOLUTE AUTO 0.07 K/mm3 (0.00-0.23); BASOPHILS PERCENT AUTO 0 % (0-2); EOSINOPHILS ABSOLUTE AUTO 0.06 K/mm3 (0.00-0.68); EOSINOPHILS PERCENT AUTO 0 % (0-6); Hematocrit 28.7 % (33.0-51.0); Hemoglobin 9.4 g/dL (11.5-16.0); IMMATURE GRAN ABSOLUTE AUTO 0.08 K/mm3 (0.00-0.10); IMMATURE GRAN PERCENT AUTO 1 % (0-1); LYMPHOCYTES ABSOLUTE AUTO 1.12 K/mm3 (0.84-5.20); LYMPHOCYTES PERCENT AUTO 7 % (21-46); MONOCYTES ABSOLUTE AUTO 1.45 K/mm3 (0.16-1.47); MONOCYTES PERCENT AUTO 9 % (4-13); Mean Corpuscular HGB 27.9 pg (26.0-34.0); Mean Corpuscular HGB Conc 32.8 g/dL (31.5-36.5); Mean Corpuscular Volume 85 fL (80-100); Mean Platelet Volume 10.2 fL (9.1-12.4); NEUTROPHILS ABSOLUTE AUTO 12.91 K/mm3 (1.96-9.15); NEUTROPHILS PERCENT AUTO 82 % (41-73); Platelet Count 608 K/mm3 (150-400); RDW Coefficient Variation 15.1 % (11.7-14.2); RDW Standard Deviation 46.6 fL (35.1-46.3); Red Blood Cell Count 3.37 M/mm3 (3.80-5.20); White Blood Cell Count 15.69 K/mm3 (4.00-11.30)
[2024-04-14 12:34] LABS: Albumin, Blood 2.8 g/dL (3.4-5.0); Albumin/Globulin Ratio 0.5 (0.8-1.8); Bilirubin, Total 0.4 mg/dL (0.1-1.0); Bun/Creatinine Ratio 16.2 (12.0-20.0); Calcium, Blood 9.9 mg/dL (8.5-10.1); Creatinine, Blood 1.48 mg/dL (0.40-1.00); Globulin, Blood 5.9 g/dL (2.2-4.0); Potassium, Blood 4.7 mmol/L (3.5-5.5); Total Protein, Blood 8.7 g/dL (6.4-8.2)
== END | disposition home or self-care (01) ==
LOC: LAB SHORT 11:43 → LAB 11:43
PROVIDERS: Family Medicine
DX: R19.00 Intra-abdominal and pelvic swelling, mass and lump, unspecified site (principal)
CPT/HCPCS: 80053; 85025

== ENCOUNTER 2024-08-22 10:43 | Day surgery (SDC) | payer OTHER ==
[~2024-08-22 10:43] MED LIST changes: +GABA300 PO; +MAGOXI400 PO; +POTA10T PO; +ROPINIROLE HCL4 M2 PO; +SOAANZ20 M3 PO
[2024-08-22 11:25] VITALS: BP 129/65
[2024-08-22 12:27] LABS: International Normalized Ratio 1.19; Prothrombin Time Results 12.6 Sec (9.7-11.5)
--- NOTE | 2024-08-22 13:10 | NUR ---
PT COAG'S WNL PT TAKEN TO CT. SDS TO RECOVER PT. ALL BELONINGS AND FAMILY RETURNED.
== END 2024-08-22 23:00 | disposition home or self-care (01) ==
LOC: CT 10:43
PROVIDERS: Student in an Organized Health Care Education/Training Program
DX: K76.9 Liver disease, unspecified (principal); I12.9 Hypertensive chronic kidney disease with stage 1 through stage 4 chronic kidney disease, or unspecified chronic kidney disease; N18.4 Chronic kidney disease, stage 4 (severe); K21.9 Gastro-esophageal reflux disease without esophagitis; E78.5 Hyperlipidemia, unspecified; Z87.891 Personal history of nicotine dependence; Z88.0 Allergy status to penicillin; Z79.899 Other long term (current) drug therapy; Z79.82 Long term (current) use of aspirin; Z79.01 Long term (current) use of anticoagulants
CPT/HCPCS: 36415; 85610; 85730

== ENCOUNTER 2024-09-07 00:43 | Observation (INO) | payer OTHER ==
[~2024-09-07] VITALS: Ht 167.6 cm; Wt 68.0 kg
[~2024-09-07 00:43] MED LIST changes: +GABA100 PO; -GABA300 PO
[2024-09-07 01:09] LABS: BASOPHILS ABSOLUTE AUTO 0.04 K/mm3 (0.00-0.23); BASOPHILS PERCENT AUTO 0 % (0-2); EOSINOPHILS PERCENT AUTO 0 % (0-6); Hematocrit 34.4 % (33.0-51.0); Hemoglobin 11.1 g/dL (11.5-16.0); IMMATURE GRAN ABSOLUTE AUTO 0.19 K/mm3 (0.00-0.10); IMMATURE GRAN PERCENT AUTO 1 % (0-1); LYMPHOCYTES ABSOLUTE AUTO 0.82 K/mm3 (0.84-5.20); LYMPHOCYTES PERCENT AUTO 4 % (21-46); MONOCYTES ABSOLUTE AUTO 1.61 K/mm3 (0.16-1.47); MONOCYTES PERCENT AUTO 8 % (4-13); Mean Corpuscular HGB 30.2 pg (26.0-34.0); Mean Corpuscular HGB Conc 32.3 g/dL (31.5-36.5); Mean Corpuscular Volume 94 fL (80-100); Mean Platelet Volume 9.9 fL (9.1-12.4); NEUTROPHILS ABSOLUTE AUTO 18.64 K/mm3 (1.96-9.15); NEUTROPHILS PERCENT AUTO 88 % (41-73); Platelet Count 255 K/mm3 (150-400); RDW Coefficient Variation 13.6 % (11.7-14.2); RDW Standard Deviation 46.9 fL (35.1-46.3); Red Blood Cell Count 3.67 M/mm3 (3.80-5.20)
[2024-09-07 01:29] LABS: Albumin, Blood 3.1 g/dL (3.4-5.0); Albumin/Globulin Ratio 0.8 (0.8-1.8); Bilirubin, Total 0.5 mg/dL (0.1-1.0); Calcium, Blood 8.7 mg/dL (8.5-10.1); Creatinine, Blood 1.53 mg/dL (0.40-1.00); Globulin, Blood 3.8 g/dL (2.2-4.0); Potassium, Blood 3.9 mmol/L (3.5-5.5); Total Protein, Blood 6.9 g/dL (6.4-8.2)
[2024-09-07] MEDS ORDERED: Acetaminophen 500 MG Tab PO ONE (02:10)
[2024-09-07 03:50] LABS: Source, Urine Clean Catch
[2024-09-07 03:52] LABS: Bilirubin, Urine Neg (Neg); Blood, Urine Neg (Neg); Glucose Qualitative, Urine Neg (Neg); Ketones, Urine Neg (Neg); Leukocyte Esterase, Urine Neg (Neg); Nitrite, Urine Neg (Neg); Protein, Urine 1+ (Neg); Specific Gravity, Urine 1.015 (1.003-1.022); Urobilinogen, Urine NORM (Normal)
[2024-09-07 04:00] LABS: Appearance, Urine Clear (Clear); Color, Urine Yellow (P-Yellow)
[2024-09-07] MEDS ORDERED: MetroNIDAZOLE 500MG/NS 100 ml 100 ML IV ONE (04:25)
[2024-09-07] MEDS ORDERED: CefTRIAXone Sodium 1,000 MG in NS 50 ML IV ONE (04:25)
[2024-09-07] MEDS ORDERED: Acetaminophen 325 MG TABLET PO PRN (05:35)
[2024-09-07] MEDS ORDERED: Omeprazole 20 MG CapCR PO SCH (06:00)
[2024-09-07] MEDS ORDERED: Carvedilol 6.25 MG Tab PO SCH (08:00)
[2024-09-07] MEDS ORDERED: Aspirin 81 MG Chew PO SCH (09:00)
[2024-09-07] MEDS ORDERED: Torsemide 20 MG TAB PO SCH (09:00)
[2024-09-07] MEDS ORDERED: Spironolactone 25 MG Tab PO SCH (09:00)
[2024-09-07 09:49] VITALS: BP 148/60
[2024-09-07] MEDS ORDERED: MULVITA PO (10:12)
[2024-09-07] MEDS ORDERED: FISH OIL 1,2001 EAC4 PO (10:12)
[2024-09-07] MEDS ORDERED: VITAMIN D325 MC3 PO (10:13)
[2024-09-07] MEDS ORDERED: ACET500 PO (10:13)
[2024-09-07 14:19] LABS: BASOPHILS ABSOLUTE AUTO 0.03 K/mm3 (0.00-0.23); BASOPHILS PERCENT AUTO 0 % (0-2); EOSINOPHILS ABSOLUTE AUTO 0.03 K/mm3 (0.00-0.68); EOSINOPHILS PERCENT AUTO 0 % (0-6); Hematocrit 35.8 % (33.0-51.0); Hemoglobin 11.5 g/dL (11.5-16.0); IMMATURE GRAN ABSOLUTE AUTO 0.04 K/mm3 (0.00-0.10); IMMATURE GRAN PERCENT AUTO 0 % (0-1); LYMPHOCYTES ABSOLUTE AUTO 0.89 K/mm3 (0.84-5.20); LYMPHOCYTES PERCENT AUTO 8 % (21-46); MONOCYTES ABSOLUTE AUTO 0.92 K/mm3 (0.16-1.47); MONOCYTES PERCENT AUTO 8 % (4-13); Mean Corpuscular HGB 30.2 pg (26.0-34.0); Mean Corpuscular HGB Conc 32.1 g/dL (31.5-36.5); Mean Corpuscular Volume 94 fL (80-100); Mean Platelet Volume 10.2 fL (9.1-12.4); NEUTROPHILS ABSOLUTE AUTO 9.54 K/mm3 (1.96-9.15); NEUTROPHILS PERCENT AUTO 83 % (41-73); Platelet Count 238 K/mm3 (150-400); Red Blood Cell Count 3.81 M/mm3 (3.80-5.20); White Blood Cell Count 11.45 K/mm3 (4.00-11.30)
[2024-09-07] MEDS ORDERED: MetroNIDAZOLE 500MG/NS 100 ml 100 ML IV SCH (16:00)
--- NOTE | 2024-09-07 16:26 | NUR ---
"Spiritual Care Visit | Pt. Request Pt. is awake in bed and welcomes my visit. Pt. is pleasant. Spouse is present. Facilitate a life review and listen with empathy and interest. Consider matters of nahed, belief, and community. Pt. verbalized concern about whether she should be getting antibiotics. Listen with empathy again and seek to normalize the Pt. experience. Prayed with the Pt. Pt. and spouse both verbalized gratitude for the spiritual care visit and welcomed this boring mill set up operator vertical to return."
[2024-09-07] MEDS ORDERED: NS 250 ML IV PRN (17:05)
[2024-09-07] MEDS ORDERED: Warfarin Sodium 3 MG Tab PO ONE (18:00)
[2024-09-07 19:13] VITALS: BP 128/56
--- NOTE | 2024-09-07 19:22 | NUR ---
RECEIVED BEDSIDE REPORT. PT A/O X 4. ABLE TO STATE NEEDS APPROPRIATELY. ON RA. NO NEEDS AT THIS TIME. WILL CONTINUE TO PROVIDE CARE T/O SHIFT. CALL LT IN REACH.
[2024-09-07] MEDS ORDERED: Atorvastatin 40 MG Tab PO SCH (21:00)
[2024-09-07] MEDS ORDERED: rOPINIRole HCl 2 MG Tab PO SCH (21:00)
[2024-09-07] MEDS ORDERED: Gabapentin 300 MG Cap PO SCH (21:00)
[2024-09-07] MEDS ORDERED: HYDROcodone 5-APAP 325 TAB PO PRN (23:05)
--- NOTE | 2024-09-07 23:22 | NUR ---
1 TAB NORCO GIVEN FOR 11/17 HEADACHE. PT ROLLED INDEPENDENTLY ON LEFT SIDE, STATES SHE NORMALLY SLEEPS ON HER BACK OR LEFT SIDE. PT MUCH MORE COMFORTABLE ON HER LEFT. NO OTHER NEEDS. CALL LT IN REACH.
--- NOTE | 2024-09-08 00:47 | NUR ---
PT RESTING QUIETLY. ABX INFUSING. CALL LT IN REACH.,
--- NOTE | 2024-09-08 03:16 | NUR ---
PT RESTING QUIETLY. CALL LT IN REACH.
[2024-09-08 03:54] VITALS: BP 132/64
--- NOTE | 2024-09-08 04:29 | NUR ---
SHIFT SUMMARY: A/O X 4. PLEASANT AND COOPERATIVE WITH CARE. USES CALL LT APPROPRIATELY. STATES NEEDS APPROPRIATELY. ON RA. NO C/O CHEST PAIN OR SOB. MEDICATED WITH TYLENOL FOR A HEADACHE, PT STATES THAT SHE STILL HAD A HEADACHE AFTER REASSESSMENT. RECEIVED AN ORDER FOR 1-2 TABS OF NORCO Q6P FOR PAIN. 1 TAB GIVEN WITH ADEQUATE PAIN RELIEF. PT ABLE TO REST. NO ACUTE CHANGES. WILL CONTINUE TO PROVIDE CARE UNTIL SHIFT REPORT TO ONCOMING NURSE. CALL LT IN REACH.
[2024-09-08 04:54] LABS: BASOPHILS ABSOLUTE AUTO 0.05 K/mm3 (0.00-0.23); BASOPHILS PERCENT AUTO 1 % (0-2); EOSINOPHILS ABSOLUTE AUTO 0.11 K/mm3 (0.00-0.68); EOSINOPHILS PERCENT AUTO 1 % (0-6); Hematocrit 34.4 % (33.0-51.0); Hemoglobin 11.2 g/dL (11.5-16.0); IMMATURE GRAN ABSOLUTE AUTO 0.02 K/mm3 (0.00-0.10); IMMATURE GRAN PERCENT AUTO 0 % (0-1); LYMPHOCYTES ABSOLUTE AUTO 0.63 K/mm3 (0.84-5.20); LYMPHOCYTES PERCENT AUTO 6 % (21-46); MONOCYTES ABSOLUTE AUTO 0.86 K/mm3 (0.16-1.47); MONOCYTES PERCENT AUTO 9 % (4-13); Mean Corpuscular HGB 30.8 pg (26.0-34.0); Mean Corpuscular HGB Conc 32.6 g/dL (31.5-36.5); Mean Corpuscular Volume 95 fL (80-100); Mean Platelet Volume 10.2 fL (9.1-12.4); NEUTROPHILS ABSOLUTE AUTO 8.38 K/mm3 (1.96-9.15); NEUTROPHILS PERCENT AUTO 83 % (41-73); Platelet Count 238 K/mm3 (150-400); RDW Coefficient Variation 13.8 % (11.7-14.2); RDW Standard Deviation 47.8 fL (35.1-46.3); Red Blood Cell Count 3.64 M/mm3 (3.80-5.20); White Blood Cell Count 10.05 K/mm3 (4.00-11.30)
[2024-09-08 05:07] LABS: International Normalized Ratio 3.1; Prothrombin Time Results 30.5 Sec (9.7-11.5)
[2024-09-08 05:26] LABS: Bun/Creatinine Ratio 13.8 (12.0-20.0); Calcium, Blood 8.8 mg/dL (8.5-10.1); Creatinine, Blood 1.38 mg/dL (0.40-1.00); Magnesium, Blood 1.6 mg/dL (1.6-2.4); Potassium, Blood 3.5 mmol/L (3.5-5.5)
[2024-09-08 07:33] VITALS: BP 124/63
[2024-09-08] MEDS ORDERED: CefTRIAXone Sodium 1,000 MG in NS 100 ML IV SCH (09:00)
--- NOTE | 2024-09-08 12:08 | NUR ---
REVIEWED STUDENT NURSES DOCUMENTATION AND AGREEABLE WITH FINDINGS
[2024-09-08] MEDS ORDERED: HYDROCODONE-AC1 EA19 PO (13:19)
[2024-09-08] MEDS ORDERED: CEFP200 PO (13:20)
[2024-09-08] MEDS ORDERED: METR500 PO (13:21)
--- NOTE | 2024-09-08 14:02 | NUR ---
DISCHARGE NOTE: WENT OVER DISCHARGE WITH PATIENT; IV REMOVED. PATIENT GOT DRESSED AND COLLECTED BELONGINGS. PATIENT WHEELED DOWN BY CIS COORDINATOR AND . NO SIGNS OR SYMPTOMS OF DISTRESS WITH DISCHARGE.
[2024-09-08] MEDS ORDERED: Warfarin Sodium 3 MG Tab PO SCH (18:00)
== END 2024-09-08 13:45 | disposition home or self-care (01) ==
LOC: ER 00:43 → ERHOLD 00:44 → ER 00:44 → MEDS 00:44 → ERHOLD 00:44 → MEDS 09:50
PROVIDERS: Emergency Medicine; Internal Medicine; ADMIT Student in an Organized Health Care Education/Training Program
DX: I48.20 Chronic atrial fibrillation, unspecified (principal); D72.829 Elevated white blood cell count, unspecified; E78.5 Hyperlipidemia, unspecified; I12.9 Hypertensive chronic kidney disease with stage 1 through stage 4 chronic kidney disease, or unspecified chronic kidney disease; N18.30 Chronic kidney disease, stage 3 unspecified; K57.30 Diverticulosis of large intestine without perforation or abscess without bleeding; D63.1 Anemia in chronic kidney disease; G25.81 Restless legs syndrome; K52.9 Noninfective gastroenteritis and colitis, unspecified; Z79.01 Long term (current) use of anticoagulants; Z79.899 Other long term (current) drug therapy; Z87.891 Personal history of nicotine dependence; Z88.0 Allergy status to penicillin
CPT/HCPCS: 36415; 70450; 72125; 74177; 80048; 80053; 83735; 84484; 85025; 85610; 93005; 93010; 96365-59; 96375; 96376; 97116; 97162; 97165; 99285-25; A9270; G0378; J0696; J7050; Q9967

== ENCOUNTER 2024-12-14 06:29 | Day surgery (SDC) | payer OTHER ==
[~2024-12-14] VITALS: Ht 157.5 cm; Wt 74.8 kg
[~2024-12-14 06:29] MED LIST changes: +ACET500 PO; +CEFP200 PO; +FISH OIL 1,2001 EAC4 PO; +HYDROCODONE-AC1 EA19 PO; +METR500 PO; +MULVITA PO; +VITAMIN D325 MC3 PO
[2024-12-14] MEDS ORDERED: AMLO5 (06:59)
[2024-12-14 08:44] VITALS: BP 130/58
== END 2024-12-14 08:47 | disposition home or self-care (01) ==
LOC: ORSCSDS 06:29
PROVIDERS: Specialist
PROC: 0DJ08ZZ Inspection of Upper Intestinal Tract, Via Natural or Artificial Opening Endoscopic (ICD-10-PCS; principal; 2024-12-14 08:00)
DX: R93.3 Abnormal findings on diagnostic imaging of other parts of digestive tract (principal); Z90.49 Acquired absence of other specified parts of digestive tract; K44.9 Diaphragmatic hernia without obstruction or gangrene; E78.5 Hyperlipidemia, unspecified; D64.9 Anemia, unspecified; I48.91 Unspecified atrial fibrillation; G47.33 Obstructive sleep apnea (adult) (pediatric); I10 Essential (primary) hypertension; Z95.1 Presence of aortocoronary bypass graft; Z79.899 Other long term (current) drug therapy
CPT/HCPCS: J2704; J7120